=== PATIENT | male | born 1945 | race Caucasian/White ===

== ENCOUNTER 2024-01-14 07:26 | Emergency (ER) | payer OTHER, SELFPAY ==
[2024-01-14 07:31] VITALS: BP 133/86; PULSE 68; RESP 15; TEMP 36.6; O2SAT 99
--- NOTE | 2024-01-14 07:40 | ED.WOUNDLAC ---
HPI - Wound/Laceration General Chief Complaint: Wound/Laceration Stated Complaint: lac to LUE Time Seen by Provider: 01/14/24 07:31 History of Present Illness HPI narrative: Patient is a 70-year-old male who presents ER with laceration to left forearm. He is reaching into his truck when it got caught on a piece of tile and cut him approximately 8 cm. No numbness or tingling. Unknown last tetanus shot. Bleeding controlled. 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 Family History Family History Father Acute myocardial infarction Family history of malignant neoplasm Patient's father is Mother Acute myocardial infarction Family history of malignant neoplasm Patient's mother is Sibling Patient's sister is in good health Patient's brother is in good health Social History Social History Smoking status: Never smoker Second hand tobacco smoke exposure: No Alcohol intake: never Substance use: never Substance use type: does not use Lack of Transportation: No Lack of Food: Never True Current Housing: I Have Housing Concerned About Future Housing: No Difficulty Paying Gas/Electric Bills: No Difficulty Paying for Meds: No Currently Unemployed: Decline to Answer Education: High School Diploma/GED Difficulty w/ Childcare or Family Care: No Living arrangements: with friend(s) Occupation/Education: occupation Additional occupation/education comments: [employer] Gender identity (if verbalized by the patient): Male Sexual Orientation (if Verbalized by the Patient): Straight or Heterosexual Exam Narrative: GENERAL: Well-appearing, well-nourished, and in no acute distress. HEAD: Normocephalic, atraumatic. ENT: Mucous membranes moist. CHEST: Clear to auscultation. No respiratory distress. HEART: Regular rate and rhythm. Normal peripheral pulses. EXTREMITIES: Normal range of motion. No edema. SKIN: Warm, dry, 8cm laceration into the sub cu left forearm volar. NEURO: N Alert and oriented x3. PSYCH: Normal mood and affect. Course Course Emergency Course: tetanus updated. wound closed. d/c. Vital Signs Vital signs: Vital Signs Temperature 97.8 F 01/14/24 07:31 Pulse Rate 68 01/14/24 07:31 Respiratory Rate 15 01/14/24 07:31 Blood Pressure 133/86 01/14/24 07:31 Pulse Oximetry 99 01/14/24 07:31 Oxygen Delivery Room Air 01/14/24 07:31 Temperature 97.8 F 01/14/24 07:31 Pulse Rate 68 01/14/24 07:31 Respiratory Rate 15 01/14/24 07:31 Blood Pressure 133/86 01/14/24 07:31 Pulse Oximetry 99 01/14/24 07:31 Oxygen Delivery Room Air 01/14/24 07:31 Procedures Laceration Laceration 1: Date: 01/14/24 Time: 08:19 Site: upper extremity Side (If applicable): left Size (cm): 8 Description: linear Depth: simple, single layer (subcu) Local Anesthetic: lidocaine 1% and with epi Amount of anesthesia used (mL): 6 Pre-repair: wound explored and irrigated extensively ====== Skin Level ====== Skin layer closed with: nylon Size (cm): 3-0 Number of sutures: 11 Technique: simple, interrupted
[2024-01-14] MEDS: TETANUS,DIPHTHERIA,AC PERTUSSIS ADULT (0.5 ML) BOOSTRIX IM (07:52)
[2024-01-14] MEDS: LIDO 1%/EPINEPHRINE 1:100,000 20 ML VIAL 5 ML INFILTRATE (07:53)
[2024-01-14 08:29] VITALS: BP 128/79; PULSE 63; RESP 17; TEMP 36.7; O2SAT 99
== END 2024-01-14 08:31 | disposition home or self-care (01) ==
PROVIDERS: Emergency Provider Emergency Medicine; PCP Nurse Practitioner
DX: S51.812A Laceration without foreign body of left forearm, initial encounter (principal); W45.8XXA Other foreign body or object entering through skin, initial encounter; Z23 Encounter for immunization
CPT/HCPCS: 12034; 90471; 90715; 99282; J2004

== ENCOUNTER 2024-03-02 11:27 | Outpatient (CLI) | payer OTHER, SELFPAY ==
--- NOTE | ~2024-03-02 | XR_ITS ---
Clinical Indication: Cough PA and lateral views of the chest: Comparison: 01/27/2015 Findings: Stable calcified right basilar granuloma. The lungs are otherwise clear, without evidence o f focal consolidation or pleural effusion. Cardiomediastinal silhouette is within normal limits. Bon es and soft tissues are unremarkable. Impression: No acute abnormality. Reviewed, dictated and finalized at location . EATION PROGRAM COORDINATOR Impression: No acute abnormality.
== END 2024-03-02 11:28 | disposition home or self-care (01) ==
PROVIDERS: PCP Nurse Practitioner; Visit Provider Nurse Practitioner
DX: R50.2 Drug induced fever (principal)
CPT/HCPCS: 71046